=== PATIENT | female | born 1970 | race Caucasian/White ===

== ENCOUNTER 2023-11-12 23:35 | Emergency (ER) | payer BC, OTHER ==
[~2023-11-12] VITALS: Ht 157.5 cm; Wt 56.8 kg
[2023-11-13 00:05] LABS: BILIRUBIN,URINE NEGATIVE (Neg); CLARITY,URINE CLEAR (Clear); COLOR,URINE YELLOW (Yellow); GLUCOSE, URINE NEGATIVE (Neg); KETONES,URINE NEGATIVE (Neg); LEUKOCYTE ESTERASE ,URINE NEGATIVE (Neg); NITRITES, URINE NEGATIVE (Neg); OCCULT BLOOD,URINE MODERATE (Neg); PROTEIN,URINE NEGATIVE (Neg); UROBILINOGEN,URINE 0.2 E.U/dL (0.2-1.0)
[2023-11-13 00:09] LABS: BASOPHILS % (AUTO) 0.2 % (0-1); EOSINOPHILS # (AUTO) 0.2 X10'3 (0-0.9); EOSINOPHILS % (AUTO) 4.7 % (0-6); HEMATOCRIT 34.2 % (35.0-45.0); HEMOGLOBIN 11.2 g/dl (12.0-16.0); LYMPHOCYTES # (AUTO) 0.4 X10'3 (1.1-4.8); LYMPHOCYTES % (AUTO) 11.9 % (21-51); MEAN CORPUSCULAR HEMOGLOBIN 25.8 PG (27.0-31.0); MEAN CORPUSCULAR HGB CONC 32.7 g/dL (33.0-36.5); MEAN CORPUSCULAR VOLUME 78.7 FL (78-98); MEAN PLATELET VOLUME 5.9 FL (7.4-10.4); MONOCYTES # (AUTO) 0.3 X10'3 (0-0.9); MONOCYTES % (AUTO) 8.5 % (2-12); NEUTROPHILS # (AUTO) 2.5 X10'3 (1.8-7.7); NEUTROPHILS % (AUTO) 74.7 % (42-75); PLATELET COUNT 218 X10'3 (140-440); RED BLOOD COUNT 4.34 X10'6 (4.20-5.60); RED CELL DISTRIBUTION WIDTH 15.5 % (11.5-14.5); WHITE BLOOD COUNT 3.4 X10'3 (4.5-11.0)
[2023-11-13 00:13] LABS: UA COLLECTION TYPE CLN CATCH MIDSTREAM
[2023-11-13 00:13] LABS: ALBUMIN 3.6 G/DL (3.4-5.0); ANION GAP 5 (8-16); BLOOD UREA NITROGEN 21 MG/DL (7-18); BUN/CREATININE RATIO 21.2 (10.0-20.0); CALCIUM 7.9 MG/DL (8.5-10.1); CHLORIDE 100 MMOL/L (99-107); CREATININE 0.99 MG/DL (0.40-0.90); GLUCOSE 93 MG/DL (70-104); SODIUM 138 MMOL/L (135-145); TOTAL CARBON DIOXIDE 33.1 MMOL/L (24-32); eCRCL 52 ML/MIN; eGFR 59 ML/MIN
[2023-11-13 00:17] LABS: WBC,URINE 0-4 /HPF (0-4)
[2023-11-13 00:18] LABS: BACTERIA,URINE FEW /HPF (Neg); MUCUS STRANDS FEW /LPF (Neg); SQUAMOUS EPITHELIAL CELL,UR FEW /LPF (FEW)
[2023-11-13 00:21] LABS: YEAST FEW /HPF (NEGATIVE)
[2023-11-13] MEDS ORDERED: CEPH250T PO (00:56)
[2023-11-13] MEDS: ibuprofen tablet 400 MG TABLET PO ONE (01:02)
[2023-11-13] MEDS: cephalexin 250mg capsule PO ONE (01:02)
[2023-11-13 01:12] VITALS: BP 125/78; PULSE 85; RESP 16; TEMP 97.8; O2SAT 98
== END 2023-11-13 01:14 | disposition home or self-care (01) ==
LOC: EEVIPCON 23:35 → ER 23:35
DX: R31.9 Hematuria, unspecified (principal); N39.0 Urinary tract infection, site not specified; Z79.2 Long term (current) use of antibiotics
CPT/HCPCS: 36415; 80048; 81001; 81003; 85025; 99283

== ENCOUNTER 2024-07-31 02:55 | Emergency (ER) | payer BC ==
[~2024-07-31] VITALS: Ht 157.5 cm; Wt 58.4 kg
[2024-07-31 03:25] LABS: STREP A SCREEN NEGATIVE (Neg)
[2024-07-31] MEDS ORDERED: ONDA-243 PO (03:59)
[2024-07-31] MEDS: dexamethasone 4mg tablet PO ONE (04:02)
[2024-07-31 04:04] VITALS: BP 123/68; PULSE 91; RESP 18; TEMP 98.2; O2SAT 98
== END 2024-07-31 04:05 | disposition home or self-care (01) ==
LOC: EEVIPCON 02:56 → ER 02:56
DX: J02.8 Acute pharyngitis due to other specified organisms (principal); B97.89 Other viral agents as the cause of diseases classified elsewhere; Z72.89 Other problems related to lifestyle
CPT/HCPCS: 87081; 87880; 99283

== ENCOUNTER 2025-01-01 04:04 | Emergency (ER) | payer BC ==
[~2025-01-01] VITALS: Ht 157.5 cm; Wt 56.8 kg
[~2025-01-01 04:04] MED LIST: ONDA-243 PO
[2025-01-01 04:07] VITALS: TEMP 98
[2025-01-01] MEDS: triamcinolone acetonide 40mg/ml inj IM ONE (04:21)
== END 2025-01-01 04:34 | disposition home or self-care (01) ==
LOC: ER 04:05 → EEVIPCON 04:05 → ER 04:34
DX: M65.4 Radial styloid tenosynovitis [de Quervain] (principal); Z72.89 Other problems related to lifestyle
CPT/HCPCS: 20552; 99284; J3301